=== PATIENT | female | born 1945 | race Caucasian/White ===

== ENCOUNTER 2016-05-19 11:09 | Emergency (ER) | payer MEDICARE, OTHER ==
[2016-05-19 11:15] VITALS: BP 128/68
--- NOTE | 2016-05-19 11:56 | EDM.PDOC ---
ED HPI GENERAL MEDICAL PROBLEM - General Chief Complaint: Fever Stated Complaint: FEVER FROM CHEMO Time Seen by Provider: 05/19/16 11:45 Source of Information: Reports: Patient History Limitations: Reports: No limitations - History of Present Illness INITIAL COMMENTS - FREE TEXT/NARRATIVE: This 70 yo female patient reports to the ED due to a fever. The patient reports she was going to get chemo when the nursing staff noticed that the patient had a fever. The patient was sent to the ED for further evaluation and management. 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 The patient is currently on day 9 of a 10 day course of chemo. The patient reports no current cough, cold or flu symptoms. The patient reports frequent urination, but also reports she drinks a lot of water every day and normally produces a lot of urine. The patient reports she has been having increased gas over the past couple of days, but has not had any nausea, vomiting or diarrhea. Onset: today Duration: Constant Location: Reports: other (unknown fever) Severity: mild Improves with: Reports: None Worsens with: Reports: None Associated Symptoms: Reports: fever/chills - Related Data Allergies Allergy/AdvReac Type Severity Reaction Status Date / Time diclofenac sodium Allergy Unknown Cannot Verified 05/19/16 11:31 [From Arthrotec] Remember misoprostol [From Arthrotec] Allergy Unknown Cannot Verified 05/19/16 11:31 Remember sulfamethoxazole Allergy Unknown Rash Verified 05/19/16 11:31 [From Bactrim] trimethoprim [From Bactrim] Allergy Unknown Rash Verified 05/19/16 11:31 valdecoxib [From Bextra] Allergy Unknown Cannot Verified 05/19/16 11:31 Remember lansoprazole Allergy Nausea and Verified 05/19/16 11:31 Vomiting midodrine Allergy Bradycardia Verified 05/19/16 11:31 pantoprazole Allergy Nausea and Verified 05/19/16 11:31 Vomiting pravastatin Allergy Weakness Verified 05/19/16 11:31 Sulfa (Sulfonamide Allergy Rash Verified 05/19/16 11:31 Antibiotics) sulfacetamide Allergy Rash Verified 05/19/16 11:31 atorvastatin calcium AdvReac Unknown Muscle Verified 05/19/16 11:31 [From Lipitor] Aches crab AdvReac Diarrhea Verified 05/19/16 11:31 rosuvastatin AdvReac Muscle Verified 05/19/16 11:31 Aches Home Meds: Home Meds Calcium Carbonate/Vitamin D3 [Calcium 600 + Vit D Tablet] 1,200 mg PO DAILY 10/18 [History] Levothyroxine [Synthroid] 88 mcg PO DAILY 11/12/13 [History] Multivitamin [Multi Vitamin Daily] 1 tab PO DAILY 11/12/13 [History] Nitroglycerin [Nitrostat] 0.4 mg SL ASDIRECTED PRN 11/12/13 [History] Omeprazole [Prilosec] 20 mg PO DAILY 11/12/13 [History] traMADol [Ultram] 50 mg PO Q6HR PRN 11/12/13 [History] Fludrocortisone [Florinef] 0.05 mg PO DAILY 11/13/13 [History] Hydrocortisone [Cortef] 20 mg PO DAILY 11/13/13 [History] Hydrocortisone [Cortef] 10 mg PO BEDTIME 02/22/15 [History] Potassium Chloride 10 meq PO TID 02/22/15 [History] Acetaminophen 2 tab PO Q6H PRN 12/24/15 [History] Allopurinol [Zyloprim] 300 mg PO DAILY 12/24/15 [History] Hydroxyurea [Hydrea] 2 cap PO DAILY 12/24/15 [History] Ondansetron [Zofran] 4 mg PO Q8H PRN 12/24/15 [History] Ponatinib HCl [Iclusig] 15 mg PO DAILY 12/24/15 [History] Aspirin [Halfprin] 81 mg PO BRK 03/26/16 [History] Fluconazole [Diflucan] 200 mg PO DAILY 03/26/16 [History] Pentamidine Isethionate [Nebupent] 300 mg INH ASDIRECTED 03/26/16 [History] Metoprolol Succinate [Toprol XL] 1 tab PO DAILY 05/19/16 [History] Valsartan 1 tab PO DAILY 05/19/16 [History] Past Medical History HEENT History: Reports: Cataract Cardiovascular History: Reports: CAD, High cholesterol, Hypertension, Stents Respiratory History: Reports: Bronchitis, recurrent, Pneumonia, recurrent Gastrointestinal History: Reports: None Genitourinary History: Reports: UTI, recurrent [employer] History: Reports: Musculoskeletal History: Reports: Osteoarthritis Neurological History: Reports: None Psychiatric History: Reports: None Endocrine/Metabolic History: Reports: [place]'s disease, Hypothyroidism, Other ( see below) Other Endocrine/Metabolic History: checks blood sugar, no medication Hematologic History: Reports: Other (see below) Other Hematologic History: chemo induced thrombocytopenia Immunologic History: Reports: Immunosuppression Oncologic (Cancer) History: Reports: Leukemia, Other (see below) Other Oncologic History: Acute Myelo leukemia Dermatologic History: Reports: None - Infectious Disease History Infectious Disease History: Reports: Measles - Past Surgical History HEENT Surgical History: Reports: None Cardiovascular Surgical History: Reports: Carotid stents Musculoskeletal Surgical History: Reports: Knee replacement Social & Family History - Family History Family Medical History: Noncontributory HEENT: Reports: Cataract Cardiac: Reports: Heart failure, [place] Respiratory: Reports: Asthma GI: Reports: Other (see below) Other GI Family History: Chrones disease Musculoskeletal: Reports: Arthritis Neurological: Reports: CVA Endocrine/Metabolic: Reports: Ran's disease Oncologic: Reports: Colon, Lung - Tobacco Use Smoking Status *Q: Unknown Ever Smoked Second Hand Smoke Exposure: No - Caffeine Use Caffeine Use: Reports: Coffee - Recreational Drug Use Recreational Drug Use: No ED ROS GENERAL - Review of Systems Review Of Systems: See Below Constitutional: Reports: fever HEENT: Reports: No symptoms Respiratory: Reports: No Symptoms Cardiovascular: Reports: No symptoms Endocrine: Reports: no symptoms GI/Abdominal: Reports: Flatus. Denies: Abdominal pain, Black stool, Bloody stool, Constipation, Diarrhea, Decreased appetite, Difficulty swallowing, Distension, Hematemesis, Hematochezia, Melena, Mucous in stool, Nausea, Stool incontinence, Vomiting : Reports: frequency (may be due to increased water intake) Musculoskeletal: Reports: no symptoms Skin: Reports: no symptoms Neurological: Reports: No Symptoms Psychiatric: Reports: No symptoms Hematologic/Lymphatic: Reports: no symptoms Immunologic: Reports: no symptoms ED EXAM, GENERAL - Physical Exam Exam: See Below Exam Limited By: No limitations General Appearance: alert, WD/WN, no apparent distress Eye Exam: bilateral eye: EOMI, normal inspection, PERRL Ears: normal external exam, normal canal, hearing grossly normal, normal TMs Nose: normal inspection, normal mucosa, no blood Throat/Mouth: Normal inspection, Normal lips, Normal teeth, Normal gums, Normal oropharynx, Normal voice, No airway compromise Head: atraumatic, normocephalic Neck: normal inspection, supple, non-tender, full range of motion Respiratory/Chest: no respiratory distress, lungs clear, normal breath sounds, no accessory muscle use, chest non-tender Cardiovascular: normal peripheral pulses, regular rate, rhythm, no edema, no gallop, no JVD, no murmur, no rub GI/Abdominal: normal bowel sounds (Female) Exam: Deferred Rectal (Female) Exam: Deferred Back Exam: normal inspection Extremities: normal inspection, normal range of motion, non-tender, normal capillary refill, no pedal edema Neurological: alert, oriented, CN II-XII intact, normal cognition, normal gait, normal reflexes, no motor/sensory deficits Psychiatric: normal affect Skin Exam: Warm, Dry, Intact, Normal color, No rash Lymphatic: no adenopathy Course - Vital Signs Last Recorded V/S: Last Vital Signs Temp 38.4 C H 05/19/16 11:14 Pulse 119 H 05/19/16 11:14 Resp 20 05/19/16 11:14 BP 128/68 05/19/16 11:14 Pulse Ox 99 05/19/16 11:14 - Orders/Labs/Meds Orders: Active Orders 24 hr Category Date Time Status CULTURE BLOOD [BC] Stat Lab 05/19/16 11:58 Received CULTURE BLOOD [BC] Stat Lab 05/19/16 12:02 Received LACTIC ACID [CHEM] Stat Lab 05/19/16 12:02 Received Acetaminophen [Tylenol] Med 05/19/16 12:18 Once 650 mg PO NOW ONE Blood Culture x2 Reflex Set [OM.PC] Stat Oth 05/19/16 11:50 Ordered Labs: Laboratory Tests 05/19/16 05/19/16 05/19/16 Range/Units 11:25 11:28 11:28 WBC 14.4 H (5.0-10.0) 10^3/uL RBC 3.43 L (4.2-5.4) 10^6/uL Hgb 10.3 L (12.0-16.0) g/dL Hct 32.9 L (37.0-47.0) % MCV 95.9 (80-100) fL MCH 30.0 (27.0-34.0) pg MCHC 31.3 L (33.0-35.0) g/dL Plt Count 299 (150-450) 10^3/uL Neut % (Auto) 87.1 H (42.2-75.2) % Lymph % (Auto) 8.7 L (20.5-50.1) % Dukes % (Auto) 3.4 (2-8) % Eos % (Auto) 0.1 L (1.0-3.0) % Baso % (Auto) 0.7 (0.0-1.0) % Sodium 133 L (135-145) mmol/L Potassium 3.5 L (3.6-5.0) mmol/L Chloride 99 L (101-111) mmol/L Carbon Dioxide 25.0 (21.0-31.0) mmol/L Anion Gap 12.5 BUN 16 (7-18) mg/dL Creatinine 1.0 (0.6-1.3) mg/dL Est Cr Clr Drug Dosing 38.68 mL/min Estimated GFR (MDRD) 55 BUN/Creatinine Ratio 16.00 Glucose 127 H (74-105) mg/dL Calcium 8.7 (8.4-10.2) mg/dl Total Bilirubin 1.0 (0.2-1.0) mg/dL AST 20 (10-42) IU/L ALT 18 (10-60) IU/L Alkaline Phosphatase 52 (42-121) IU/L Total Protein 7.2 (6.7-8.2) g/dl Albumin 3.0 L (3.2-5.5) g/dl Globulin 4.2 Albumin/Globulin Ratio 0.71 Urine Color Yellow (YELLOW) Urine Appearance Clear (CLEAR) Urine pH 7.0 (5.0-9.0) Ur Specific Dexter 1.015 (1.005-1.030) Urine Protein Negative (NEGATIVE) Urine Glucose (UA) Negative (NEGATIVE) Urine Ketones Negative (NEGATIVE) Urine Occult Blood Trace-intact H (NEGATIVE) Urine Nitrite Negative (NEGATIVE) Urine Bilirubin Negative (NEGATIVE) Urine Urobilinogen 1.0 (0.2-1.0) mg/dL Ur Leukocyte Esterase Trace H (NEGATIVE) Urine RBC 0-5 /HPF Urine WBC 0-5 (0-5/HPF) /HPF Ur Epithelial Cells Occasional /HPF Urine Bacteria Occasional (0-FEW/HPF) /HPF - Re-Assessments/Exams Free Text/Narrative Re-Assessment/Exam: 05/19/16 12:19 Discussed the examination, history and lab results with Dr. Luther. Dr. Luther advised to give the patient Tylenol and have her complete her treatment. Departure - Departure Time of Disposition: 12:20 Disposition: Home, Self-Care 01 Condition: fair Clinical Impression: Fever Qualifiers: Fever type: other Qualified Code(s): R50.81 - Fever presenting with conditions classified elsewhere Instructions: Fever, Adult, [id number] Forms: ED Department Discharge Care Plan Goals: The patient and Dr. Luther were advised of the history, examination and lab results during the visit in the ED. The patient was given a dose of Tylenol while in the ED. The patient was advised to return to finish her treatment ( after consult with Dr. Luther at 1215). If the patient has any additional symptoms or concerns, the patient may follow-up with her primary care facility or return to the emergency department. - My Orders Last 24 Hours: My Active Orders 05/19/16 11:50 Blood Culture x2 Reflex Set [OM.PC] Stat 05/19/16 11:58 CULTURE BLOOD [BC] Stat 05/19/16 12:02 CULTURE BLOOD [BC] Stat LACTIC ACID [CHEM] Stat 05/19/16 12:18 Acetaminophen [Tylenol] 650 mg PO NOW ONE - Assessment/Plan Last 24 Hours: My Active Orders 05/19/16 11:50 Blood Culture x2 Reflex Set [OM.PC] Stat 05/19/16 11:58 CULTURE BLOOD [BC] Stat 05/19/16 12:02 CULTURE BLOOD [BC] Stat LACTIC ACID [CHEM] Stat 05/19/16 12:18 Acetaminophen [Tylenol] 650 mg PO NOW ONE
[2016-05-19] MEDS ORDERED: Acetaminophen 325 MG Tab PO ONE (12:18)
== END 2016-05-19 12:30 | disposition home or self-care (01) ==
LOC: DL.ED 11:09
DX: R50.81 Fever presenting with conditions classified elsewhere (principal); I25.10 Atherosclerotic heart disease of native coronary artery without angina pectoris; I10 Essential (primary) hypertension; E78.00 Pure hypercholesterolemia, unspecified; E03.9 Hypothyroidism, unspecified; Z88.8 Allergy status to other drugs, medicaments and biological substances; Z88.2 Allergy status to sulfonamides; Z79.899 Other long term (current) drug therapy
CPT/HCPCS: 36415; 80053; 81001; 83605; 85025; 87040; 99284; A9270; 99282

== ENCOUNTER 2018-06-22 06:28 | Day surgery (SDC) | payer MEDICARE, OTHER ==
[~2018-06-22 06:28] MED LIST: Dextrose 5%-0.45% NaCl 1,000 ML IV SCH; Midazolam 1 MG/ML 2 ML SDV ONE; Sodium Chloride 0.9% 10 ML Syringe FLUSH PRN; fentaNYL 100 MCG/2 ML SDV ONE
[2018-06-22] MEDS ORDERED: fentaNYL 100 MCG/2 ML SDV IV ONE ×3 (06:29→07:35)
[2018-06-22] MEDS ORDERED: Midazolam 1 MG/ML 2 ML SDV IV ONE ×5 (06:29→07:40)
--- NOTE | 2018-06-22 11:24 | OR ---
DATE: 06/22/2018 PROCEDURE: Total colonoscopy. INSTRUMENT USED: PCF-H190DL Olympus video colonoscope. PREMEDICATIONS: Fentanyl 100 mcg intravenous, Versed 2.5 mg intravenous, nasal O2 cannula. The procedure was done under pulse oximetry, BP recording, and environmental monitoring specialist. INDICATION: The patient with rectal bleeding. Colonoscopic examination is done for detection of any polypoid lesions and removal, endoscopic hemostasis therapy if needed. DESCRIPTION OF PROCEDURE: Initial rectal exam showed an erythema and some abrasions. Rigid anoscopy showed small internal hemorrhoids without bleeding from them. The colonoscope was passed with ease. Few diverticula were noted in the distal left colon. Scope was passed with ease up to the ileocecal area. Photographs were taken of the normal appearing cecum, identified by landmarks of appendiceal orifice and double-bulged ileocecal folds. No bleeding was noted from any of the visualized areas at the commencement of the examination. Bowel preparation was found to be adequate, [place] scale of 2. No stricture. No vascular ectasia. No large isolated ulceration seen. No evidence of diffuse inflammatory bowel disease in the form of friability, contact bleeding, or ulcerations. No polyp or tumor mass identified. Probing the proximal sides of folds and flexures using adequate distention and clearing up the stool material, withdrawal of the scope was made, cecum to rectum time over 6 minutes. No bleeding was noted from any of the visualized areas at the completion of examination. IMPRESSION: 1. Perianal abrasions. 2. Internal hemorrhoids. 3. Diverticulosis. The patient tolerated the procedure well. [facility] /[id number] ANGE
[2018-06-22 11:51] VITALS: BP 118/70
--- NOTE | 2018-06-22 12:12 | LETTER ---
06/22/2018 Tomas Luther MD [facility] [address] [place] [address], [place] [address] RE: MIRYAM LOPEZ : [address] Luther: Ms. Miryam Lopez had colonoscopic examination done this morning and she tolerated the procedure well. I herewith send a copy of the endoscopy note and photographs for your review. Thank you. Sincerely, [facility] /[id number]
== END 2018-06-22 09:53 | disposition home or self-care (01) ==
LOC: DL.ENDO 06:28
PROVIDERS: ATTEND Internal Medicine Gastroenterology
DX: S30.817A Abrasion of anus, initial encounter (principal); K57.30 Diverticulosis of large intestine without perforation or abscess without bleeding; K64.8 Other hemorrhoids; E66.09 Other obesity due to excess calories; I25.10 Atherosclerotic heart disease of native coronary artery without angina pectoris; Z95.5 Presence of coronary angioplasty implant and graft; E11.9 Type 2 diabetes mellitus without complications; K21.9 Gastro-esophageal reflux disease without esophagitis; I10 Essential (primary) hypertension; E03.9 Hypothyroidism, unspecified; E78.5 Hyperlipidemia, unspecified; G47.33 Obstructive sleep apnea (adult) (pediatric)
CPT/HCPCS: 45378; J1642; J2250; J3010; J7042

== ENCOUNTER 2018-08-19 08:36 | Emergency (ER) | payer MEDICARE, OTHER ==
[2018-08-19 08:43] VITALS: BP 140/88
[2018-08-19] MEDS ORDERED: Aspirin 81 MG Tab.Chew PO ONE (08:50)
[2018-08-19] MEDS ORDERED: Sodium Chloride 0.9% 10 ML Syringe FLUSH PRN (08:50)
[2018-08-19 09:15] LABS: ANION GAP 11.8; CHLORIDE,CL 105 mmol/L (101-111); SODIUM,NA 141 mmol/L (135-145)
[2018-08-19] MEDS ORDERED: Potassium Chloride 20 MEQ in Premix Bag 1 BAG IV ONE (09:30)
[2018-08-19] MEDS ORDERED: Sodium Chloride 0.9% 1,000 ML IV ONE (09:31)
[2018-08-19] MEDS ORDERED: Heparin Sodium 5,000 Units/ML Vial IVPUSH ONE (09:34)
[2018-08-19] MEDS ORDERED: Heparin Sodium/0.45% NaCl 25,000 UNITS/500 ML BAG IV SCH (09:45)
--- NOTE | 2018-08-19 09:47 | EDM.PDOC ---
Scribed by Chastity العراقي 08/19/18 0931 for Kyra Soto NP ED HPI GENERAL MEDICAL PROBLEM - General Chief Complaint: Chest Pain Stated Complaint: CHEST PAIN Time Seen by Provider: 08/19/18 08:39 Source of Information: Reports: Patient, RN, RN Notes Reviewed History Limitations: Reports: No Limitations - History of Present Illness INITIAL COMMENTS - FREE TEXT/NARRATIVE: Patient presents to ER with complaint of mid sternal chest pain that began at 0700 this morning. She denies radiation to jaw, arm, or back. She admits to nausea. States last ate last evening. 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 She also admits to a history of cardiac stents in the past. She rates her pain 5/10. Onset: Today Duration: Constant Location: Reports: Chest Quality: Reports: Ache Severity: Moderate Worsens with: Reports: None Associated Symptoms: Reports: No Other Symptoms Chest Pain Score (Numeric/FACES): 5 - Related Data Allergies Allergy/AdvReac Type Severity Reaction Status Date / Time diclofenac sodium Allergy Unknown Cannot Verified 08/19/18 08:46 [From Arthrotec] Remember misoprostol [From Arthrotec] Allergy Unknown Cannot Verified 08/19/18 08:46 Remember sulfamethoxazole Allergy Unknown Rash Verified 08/19/18 08:46 [From Bactrim] trimethoprim [From Bactrim] Allergy Unknown Rash Verified 08/19/18 08:46 valdecoxib [From Bextra] Allergy Unknown Cannot Verified 08/19/18 08:46 Remember lansoprazole Allergy Nausea and Verified 08/19/18 08:46 Vomiting levofloxacin [From Levaquin] Allergy Facial Verified 08/19/18 08:46 Spasms midodrine Allergy Bradycardia Verified 08/19/18 08:46 pantoprazole Allergy Nausea and Verified 08/19/18 08:46 Vomiting pravastatin Allergy Weakness Verified 08/19/18 08:46 Sulfa (Sulfonamide Allergy Rash Verified 08/19/18 08:46 Antibiotics) sulfacetamide Allergy Rash Verified 08/19/18 08:46 atorvastatin calcium AdvReac Unknown Muscle Verified 08/19/18 08:46 [From Lipitor] Aches crab AdvReac Diarrhea Verified 08/19/18 08:46 rosuvastatin AdvReac Muscle Verified 08/19/18 08:46 Aches Home Meds: Home Meds Calcium Carbonate/Vitamin D3 [Calcium 600 + Vit D Tablet] 1,200 mg PO DAILY 10/18 [History] Levothyroxine [Synthroid] 88 mcg PO DAILY 11/12/13 [History] Multivitamin [Multi Vitamin Daily] 1 tab PO DAILY 11/12/13 [History] Nitroglycerin [Nitrostat] 0.4 mg SL ASDIRECTED PRN 11/12/13 [History] Fludrocortisone [Florinef] 0.05 mg PO DAILY 11/13/13 [History] Hydrocortisone [Cortef] 20 mg PO BID 11/13/13 [History] Potassium Chloride 20 meq PO QID 02/22/15 [History] Acetaminophen 2 tab PO Q6H PRN 12/24/15 [History] Ondansetron [Zofran] 8 mg PO Q8H PRN 12/24/15 [History] Aspirin [Halfprin] 81 mg PO BEDTIME 03/26/16 [History] Turmeric/Turmeric Root Extract [Turmeric 500 mg Capsule] 1 cap PO BID 12/06/16 [ History] L.acidoph,Paracasei, B.lactis [Probiotic] 1 tab PO DAILY 06/21/18 [History] Lutein 10 mg PO DAILY 06/21/18 [History] Magnesium Oxide [Magnesium] 400 mg PO DAILY 06/21/18 [History] Mupirocin Oint [Bactroban Oint] 1 squirt TOP BID 06/21/18 [History] Past Medical History HEENT History: Reports: Cataract, Impaired Vision Other HEENT History: PATIENT WEARS CORRECTIVE LENSES Cardiovascular History: Reports: CAD, High Cholesterol, Hypertension, SOB on Exertion, Stents Respiratory History: Reports: Bronchitis, Recurrent, Pneumonia, Recurrent, Sleep Apnea Gastrointestinal History: Reports: Diverticulosis, GERD Genitourinary History: Reports: Renal Disease, UTI, Recurrent, Other (See Below) Other Genitourinary History: MICROSCOPIC [employer] History: Reports: , Spontaneous Musculoskeletal History: Reports: Arthritis, Osteoarthritis Neurological History: Reports: Headaches, Chronic Psychiatric History: Reports: None Endocrine/Metabolic History: Reports: Erie's Disease, Diabetes, Type II, Hypothyroidism, Osteopenia Other Endocrine/Metabolic History: checks blood sugar, no medication Hematologic History: Reports: Anemia, Blood Transfusion(s) Other Hematologic History: chemo induced thrombocytopenia Immunologic History: Reports: Immunosuppression Oncologic (Cancer) History: Reports: Leukemia Other Oncologic History: Acute Myelo leukemia Dermatologic History: Reports: None - Infectious Disease History Infectious Disease History: Reports: Measles, Mumps - Past Surgical History HEENT Surgical History: Reports: None Cardiovascular Surgical History: Reports: Coronary Artery Stent Respiratory Surgical History: Reports: None GI Surgical History: Reports: Colonoscopy, Colostomy, EGD Female Surgical History: Reports: Breast Biopsy, Cystoscopy, Tubal Ligation, Other (See Below) Other Female Surgeries/Procedures: LEFT BENIGN BREAsT LUMPECTOMY Neurological Surgical History: Reports: None Musculoskeletal Surgical History: Reports: Knee Replacement Other Musculoskeletal Surgeries/Procedures:: bilateral knee replacement 2005 Oncologic Surgical History: Reports: Biopsy of Breast, Lumpectomy Dermatological Surgical History: Reports: None Social & Family History - Family History Family Medical History: Noncontributory HEENT: Reports: Cataract Cardiac: Reports: Heart Failure, [place] Respiratory: Reports: Asthma GI: Reports: Other (See Below) Other GI Family History: Chrones disease Musculoskeletal: Reports: Arthritis Neurological: Reports: CVA Endocrine/Metabolic: Reports: Erie's Disease Oncologic: Reports: Colon, Lung - Caffeine Use Caffeine Use: Reports: Soda, Tea ED ROS GENERAL - Review of Systems Review Of Systems: ROS reveals no pertinent complaints other than HPI. ED EXAM, GENERAL - Physical Exam Exam: See Below Exam Limited By: No Limitations General Appearance: Anxious Eye Exam: Bilateral Eye: EOMI, Normal Inspection, PERRL Ears: Normal External Exam, Normal Canal, Hearing Grossly Normal, Normal TMs Nose: Normal Inspection, Normal Mucosa, No Blood Throat/Mouth: Normal Inspection, Normal Lips, Normal Teeth, Normal Gums, Normal Oropharynx, Normal Voice, No Airway Compromise Head: Atraumatic, Normocephalic Neck: Normal Inspection, Supple, Non-Tender, Full Range of Motion Respiratory/Chest: Lungs Clear (diminished) Cardiovascular: Normal Peripheral Pulses, Regular Rate, Rhythm, No Edema, No Gallop, No JVD, No Murmur, No Rub GI/Abdominal: Normal Bowel Sounds, Soft, Non-Tender, No Organomegaly, No Distention, No Abnormal Bruit, No Mass (Female) Exam: Deferred Rectal (Female) Exam: Deferred Back Exam: Normal Inspection, Full Range of Motion, NT Extremities: Normal Inspection, Normal Range of Motion, Non-Tender, Normal Capillary Refill, No Pedal Edema Neurological: Alert, Oriented, CN II-XII Intact, Normal Cognition, Normal Gait, Normal Reflexes, No Motor/Sensory Deficits Psychiatric: Anxious Skin Exam: Other (pale) Lymphatic: No Adenopathy EKG INTERPRETATION EKG Date: 08/19/18 Time: 08:50 Rhythm: Other (sinus rhythm) Rate (Beats/Min): 70 [place]: Normal P-Wave: Present QRS: LBBB ST-T: Normal QT: Normal Course - Vital Signs Last Recorded V/S: Last Vital Signs Temp 95.7 F 08/19/18 08:40 Pulse 79 08/19/18 08:40 Resp 18 08/19/18 08:40 BP 140/88 08/19/18 08:40 Pulse Ox 96 08/19/18 08:40 - Orders/Labs/Meds Orders: Active Orders 24 hr Category Date Time Status EKG Documentation Completion [RC] STAT Care 08/19/18 08:49 Active Peripheral IV Care [RC] . DIRECTED Care 08/19/18 08:50 Active INR,PT,PROTHROMBIN TIME [COAG] Stat Lab 08/19/18 08:50 Received Heparin Sodium/0.45% NaCl [Heparin 25,000 Units in 1/2 Med 08/19/18 09:45 Active NS 500 ML] 25,000 units in 500 ml IV TITRATE Potassium Chloride [KCL 20 MEQ in Water 100 ML] 20 meq Med 08/19/18 09:30 Active Premix Bag 1 bag IV ONETIME Sodium Chloride 0.9% [Normal Saline] 1,000 ml Med 08/19/18 09:31 Active IV .BOLUS Sodium Chloride 0.9% [Saline Flush] Med 08/19/18 08:50 Active 10 ml FLUSH ASDIRECTED PRN Peripheral IV Insertion Adult [OM.PC] Stat Oth 08/19/18 08:49 Ordered Medication Orders Potassium Chloride 20 meq/ (Premix) 100 mls @ 50 mls/hr IV ONETIME ONE Stop: 08/19/18 11:29 Last Admin: 08/19/18 09:38 Dose: 50 mls/hr Sodium Chloride (Normal Saline) 1,000 mls @ 100 mls/hr IV .BOLUS ONE Stop: 08/19/18 19:30 Last Admin: 08/19/18 09:37 Dose: 100 mls/hr Heparin Sodium/Sodium Chloride (Heparin 25,000 Units In 1/2 Ns 500 Ml) 25,000 units in 500 mls @ 23.253 mls/hr IV TITRATE TESSA; Protocol Sodium Chloride (Saline Flush) 10 ml FLUSH ASDIRECTED PRN PRN Reason: Keep Vein Open Last Admin: 08/19/18 09:11 Dose: 10 ml Labs: Laboratory Tests 08/19/18 08/19/18 08/19/18 Range/Units 08:50 08:50 09:03 WBC 8.9 (5.0-10.0) 10^3/uL RBC 4.05 L (4.2-5.4) 10^6/uL Hgb 12.6 D (12.0-16.0) g/dL Hct 39.4 (37.0-47.0) % MCV 97.3 (80-100) fL MCH 31.1 (27.0-34.0) pg MCHC 32.0 L (33.0-35.0) g/dL Plt Count 197 D (150-450) 10^3/uL Neut % (Auto) 62.2 (42.2-75.2) % Lymph % (Auto) 24.7 (20.5-50.1) % [place] % (Auto) 10.5 H (2-8) % Eos % (Auto) 2.3 (1.0-3.0) % Baso % (Auto) 0.3 (0.0-1.0) % Sodium 141 (135-145) mmol/L Potassium 2.8 L (3.6-5.0) mmol/L Chloride 105 (101-111) mmol/L Carbon Dioxide 27.0 (21.0-31.0) mmol/L Anion Gap 11.8 BUN 15 (7-18) mg/dL Creatinine 0.8 (0.6-1.3) mg/dL Est Cr Clr Drug Dosing 49.38 mL/min Estimated GFR (MDRD) > 60 BUN/Creatinine Ratio 18.75 Glucose 95 (74-105) mg/dL Calcium 8.7 (8.4-10.2) mg/dl Total Bilirubin 1.0 (0.2-1.0) mg/dL AST 24 (10-42) IU/L ALT 14 (10-60) IU/L Alkaline Phosphatase 40 L (42-121) IU/L Troponin I 2.07 H* (0.00-0.02) ng/ml B-Natriuretic Peptide 527 H (0-100) pg/ml Total Protein 5.8 L (6.7-8.2) g/dl Albumin 3.1 L (3.2-5.5) g/dl Globulin 2.7 Albumin/Globulin Ratio 1.15 Urine Color Yellow (YELLOW) Urine Appearance Clear (CLEAR) Urine pH 7.0 (5.0-9.0) Ur Specific [place] 1.020 (1.005-1.030) Urine Protein Negative (NEGATIVE) Urine Glucose (UA) Negative (NEGATIVE) Urine Ketones Negative (NEGATIVE) Urine Occult Blood Negative (NEGATIVE) Urine Nitrite Negative (NEGATIVE) Urine Bilirubin Negative (NEGATIVE) Urine Urobilinogen 0.2 (0.2-1.0) mg/dL Ur Leukocyte Esterase Negative (NEGATIVE) Meds: Medications Generic Name Dose Route Start Last Admin Trade Name Benjamín PRN Reason Stop Dose Admin Potassium Chloride 20 meq/ 100 mls @ 50 mls/hr 08/19/18 09:30 08/19/18 09:38 Premix IV 08/19/18 11:29 50 mls/hr ONETIME ONE Administration Sodium Chloride 1,000 mls @ 100 mls/hr 08/19/18 09:31 08/19/18 09:37 Normal Saline IV 08/19/18 19:30 100 mls/hr .BOLUS ONE Administration Heparin Sodium/Sodium Chloride 25,000 units in 500 mls @ 23.253 mls/hr 09:45 Heparin 25,000 Units In 1/2 Ns 500 Ml IV TITRATE TESSA Protocol 12 UNITS/KG/HR Sodium Chloride 10 ml 08/19/18 08:50 08/19/18 09:11 Saline Flush FLUSH 10 ml ASDIRECTED PRN Administration Keep Vein Open Discontinued Medications Generic Name Dose Route Start Last Admin Trade Name Freq PRN Reason Stop Dose Admin Aspirin 324 mg 08/19/18 08:50 08/19/18 09:10 Aspirin PO 08/19/18 08:51 324 mg ONETIME ONE Administration Heparin Sodium (Porcine) 4,000 units 08/19/18 09:34 Heparin Sodium IVPUSH 08/19/18 09:35 .BOLUS ONE - Radiology Interpretation Free Text/Narrative:: Chest xray: FINDINGS: Limitations: Body habitus degrades image quality and signal to noise ratio compromising the study. Tubes, catheters and devices: An infusion port is present. Lungs: Unremarkable. No consolidation. Pleural space: Unremarkable. No pleural effusion. No pneumothorax. Heart/Mediastinum: Unremarkable. No cardiomegaly. Bones/joints: Unremarkable. IMPRESSION: No acute findings. Thank you for allowing us to participate in the care of your patient. Dictated and Authenticated by: Soham Shi MD 08/19/2018 9:21 AM Central Time ([place] & [place]) See rad report - Re-Assessments/Exams Free Text/Narrative Re-Assessment/Exam: 08/19/18 09:44 Discussed patient case with Dr. Michelle who agreed to accept the patient for transfer to [facility]. Departure - Departure Time of Disposition: 09:45 Disposition: DC/Tfer to [facility] 02 Reason for Transfer *Q: Other Condition: Fair Clinical Impression: Hypokalemia, Ran's disease, NSTEMI (non-ST elevated myocardial infarction) Forms: ED Department Discharge, Interfacility Transfer EMTALA - My Orders Last 24 Hours: My Active Orders 08/19/18 08:49 EKG Documentation Completion [RC] STAT Peripheral IV Insertion Adult [OM.PC] Stat 08/19/18 08:50 Peripheral IV Care [RC] . DIRECTED INR,PT,PROTHROMBIN TIME [COAG] Stat Sodium Chloride 0.9% [Saline Flush] 10 ml FLUSH ASDIRECTED PRN 08/19/18 09:30 Potassium Chloride [KCL 20 MEQ in Water 100 ML] 20 meq Premix Bag 1 bag IV ONETIME 08/19/18 09:31 Sodium Chloride 0.9% [Normal Saline] 1,000 ml IV .BOLUS 08/19/18 09:45 Heparin Sodium/0.45% NaCl [Heparin 25,000 Units in 1/2 NS 500 ML] 25,000 units in 500 ml IV TITRATE - Assessment/Plan Last 24 Hours: My Active Orders 08/19/18 08:49 EKG Documentation Completion [RC] STAT Peripheral IV Insertion Adult [OM.PC] Stat 08/19/18 08:50 Peripheral IV Care [RC] . DIRECTED INR,PT,PROTHROMBIN TIME [COAG] Stat Sodium Chloride 0.9% [Saline Flush] 10 ml FLUSH ASDIRECTED PRN 08/19/18 09:30 Potassium Chloride [KCL 20 MEQ in Water 100 ML] 20 meq Premix Bag 1 bag IV ONETIME 08/19/18 09:31 Sodium Chloride 0.9% [Normal Saline] 1,000 ml IV .BOLUS 08/19/18 09:45 Heparin Sodium/0.45% NaCl [Heparin 25,000 Units in 1/2 NS 500 ML] 25,000 units in 500 ml IV TITRATE I have read and agree with the documentation that has been completed regarding this visit. By signing this record, I attest that the documentation was completed in my physical presence and is an accurate record of the encounter.
== END 2018-08-19 10:13 ==
LOC: DL.ED 08:36
DX: I21.4 Non-ST elevation (NSTEMI) myocardial infarction (principal); E27.1 Primary adrenocortical insufficiency; E87.6 Hypokalemia; E11.9 Type 2 diabetes mellitus without complications; E03.9 Hypothyroidism, unspecified; I25.10 Atherosclerotic heart disease of native coronary artery without angina pectoris; E78.00 Pure hypercholesterolemia, unspecified; I10 Essential (primary) hypertension; Z95.5 Presence of coronary angioplasty implant and graft; Z88.8 Allergy status to other drugs, medicaments and biological substances; Z88.2 Allergy status to sulfonamides; Z88.1 Allergy status to other antibiotic agents; Z79.899 Other long term (current) drug therapy; Z79.82 Long term (current) use of aspirin; Z91.013 Allergy to seafood
CPT/HCPCS: 36415; 71045; 80053; 81003; 83880; 84484; 85025; 85610; 93005; 96365; 96368; 99285; A4217; A9270; J1644; J3480; J7030

== ENCOUNTER 2019-01-03 10:39 | Emergency (ER) | payer MEDICARE, OTHER ==
--- NOTE | 2019-01-03 11:17 | EDM.PDOC ---
ED HPI GENERAL MEDICAL PROBLEM - General Stated Complaint: CHEST PAIN Time Seen by Provider: 01/03/19 11:05 Source of Information: Reports: Patient History Limitations: Reports: No Limitations - History of Present Illness INITIAL COMMENTS - FREE TEXT/NARRATIVE: This 73 yo female patient reports to the ED with left sided chest pain and increased shortness of breath. The patient reports her pain is mostly in the left side of her chest and radiates to her left posterior shoulder. The patient reports she had a pacemaker placed on Tuesday (01/01/19) in [place]. After the procedure, the patient reports she noticed some shortness of breath. Since that time, the patient has noticed some chills and increasing shortness of breath. The patient reports she has had a productive cough and had some nausea during the last episode of coughing. Onset Date: 01/01/19 Duration: Constant, Getting Worse Location: Reports: Chest (left sided chest pain), Upper Extremity, Left (left posterior shoulder) Quality: Reports: Ache, Pressure Severity: Moderate Improves with: Reports: None Worsens with: Reports: None Context: Reports: Other Associated Symptoms: Reports: Chest Pain, cough w sputum, Nausea/Vomiting Treatments GREENS TIER: Reports: Acetaminophen - Related Data Allergies Allergy/AdvReac Type Severity Reaction Status Date / Time diclofenac sodium Allergy Unknown Cannot Verified 08/19/18 08:46 [From Arthrotec] Remember misoprostol [From Arthrotec] Allergy Unknown Cannot Verified 08/19/18 08:46 Remember sulfamethoxazole Allergy Unknown Rash Verified 08/19/18 08:46 [From Bactrim] trimethoprim [From Bactrim] Allergy Unknown Rash Verified 08/19/18 08:46 valdecoxib [From Bextra] Allergy Unknown Cannot Verified 08/19/18 08:46 Remember lansoprazole Allergy Nausea and Verified 08/19/18 08:46 Vomiting levofloxacin [From Levaquin] Allergy Facial Verified 08/19/18 08:46 Spasms midodrine Allergy Bradycardia Verified 08/19/18 08:46 pantoprazole Allergy Nausea and Verified 08/19/18 08:46 Vomiting pravastatin Allergy Weakness Verified 08/19/18 08:46 Sulfa (Sulfonamide Allergy Rash Verified 08/19/18 08:46 Antibiotics) sulfacetamide Allergy Rash Verified 08/19/18 08:46 atorvastatin calcium AdvReac Unknown Muscle Verified 08/19/18 08:46 [From Lipitor] Aches crab AdvReac Diarrhea Verified 08/19/18 08:46 rosuvastatin AdvReac Muscle Verified 08/19/18 08:46 Aches Home Meds: Home Meds Calcium Carbonate/Vitamin D3 [Calcium 600 + Vit D Tablet] 1,200 mg PO DAILY 10/18 [History] Levothyroxine [Synthroid] 88 mcg PO DAILY 11/12/13 [History] Multivitamin [Multi Vitamin Daily] 1 tab PO DAILY 11/12/13 [History] Nitroglycerin [Nitrostat] 0.4 mg SL ASDIRECTED PRN 11/12/13 [History] Fludrocortisone [Florinef] 0.05 mg PO DAILY 11/13/13 [History] Hydrocortisone [Cortef] 20 mg PO BID 11/13/13 [History] Potassium Chloride 20 meq PO DAILY 02/22/15 [History] Acetaminophen 2 tab PO Q6H PRN 12/24/15 [History] Aspirin [Halfprin] 81 mg PO BEDTIME 03/26/16 [History] Turmeric/Turmeric Root Extract [Turmeric 500 mg Capsule] 2 cap PO BID 12/06/16 [ History] L.acidoph,Paracasei, B.lactis [Probiotic] 1 tab PO DAILY 06/21/18 [History] Lutein 10 mg PO DAILY 06/21/18 [History] Carvedilol 6.25 mg PO BID 10/19/18 [History] Clopidogrel Bisulfate [Clopidogrel] 75 mg PO DAILY 10/19/18 [History] Famotidine 20 mg PO DAILY 10/19/18 [History] Furosemide 20 mg PO DAILY 10/19/18 [History] Lisinopril 5 mg PO DAILY 10/19/18 [History] Spironolactone [Aldactone] 25 mg PO DAILY 10/19/18 [History] Cephalexin [Keflex] 500 mg PO BID 01/03/19 [History] Past Medical History HEENT History: Reports: Cataract, Impaired Vision Other HEENT History: PATIENT WEARS CORRECTIVE LENSES Cardiovascular History: Reports: CAD, Cardiomyopathy, High Cholesterol, Hypertension, SOB on Exertion, Stents Other Cardiovascular History: S/P Stent, LAD 12/10. S/P Stent , mid LAD 2018 Respiratory History: Reports: Bronchitis, Recurrent, Pneumonia, Recurrent, Sleep Apnea Gastrointestinal History: Reports: Diverticulosis, Fecal Incontinence, GERD Genitourinary History: Reports: Chronic Renal Insuffiency, Renal Disease, UTI, Recurrent, Other (See Below) Other Genitourinary History: MICROSCOPIC HEMATURIA. 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 GEOLOGY ASSOCIATE History: Reports: , Spontaneous Musculoskeletal History: Reports: Arthritis, Osteoarthritis Neurological History: Reports: Headaches, Chronic Psychiatric History: Reports: None Endocrine/Metabolic History: Reports: [place]'s Disease, Diabetes, Type II, Hypothyroidism, Osteopenia Other Endocrine/Metabolic History: checks blood sugar, no medication Hematologic History: Reports: Anemia, Blood Transfusion(s) Other Hematologic History: chemo induced thrombocytopenia Immunologic History: Reports: Immunosuppression Oncologic (Cancer) History: Reports: Leukemia Other Oncologic History: Acute Myelo leukemia Dermatologic History: Reports: None - Infectious Disease History Infectious Disease History: Reports: Measles, Mumps - Past Surgical History HEENT Surgical History: Reports: None Cardiovascular Surgical History: Reports: Coronary Artery Stent Respiratory Surgical History: Reports: None GI Surgical History: Reports: Colonoscopy, Colostomy, EGD Other GI Surgeries/Procedures: Sigmoid resection with colostomy 08/21. Colostomy reversal 07/22 Female Surgical History: Reports: Breast Biopsy, Cystoscopy, Tubal Ligation, Other (See Below) Other Female Surgeries/Procedures: LEFT BENIGN BREAsT LUMPECTOMY Neurological Surgical History: Reports: None Musculoskeletal Surgical History: Reports: Knee Replacement Other Musculoskeletal Surgeries/Procedures:: bilateral knee replacement 2005 Oncologic Surgical History: Reports: Biopsy of Breast, Lumpectomy Dermatological Surgical History: Reports: None Social & Family History - Family History Family Medical History: Noncontributory HEENT: Reports: Cataract Cardiac: Reports: Aneurysm, CAD, Heart Failure, [place] Respiratory: Reports: Asthma GI: Reports: Celiac Disease, Other (See Below) Other GI Family History: Chrones disease Musculoskeletal: Reports: Arthritis Neurological: Reports: CVA Endocrine/Metabolic: Reports: Ran's Disease Oncologic: Reports: Colon, Lung - Caffeine Use Caffeine Use: Reports: Soda, Tea ED ROS GENERAL - Review of Systems Review Of Systems: ROS reveals no pertinent complaints other than HPI. ED EXAM, GENERAL - Physical Exam Exam: See Below Exam Limited By: No Limitations General Appearance: Alert, WD/WN, Moderate Distress, Obese Eye Exam: Bilateral Eye: EOMI, Normal Inspection, PERRL Ears: Normal External Exam, Normal Canal, Hearing Grossly Normal, Normal TMs Nose: Normal Inspection, Normal Mucosa, No Blood Throat/Mouth: Normal Inspection, Normal Lips, Normal Teeth, Normal Gums, Normal Oropharynx, Normal Voice, No Airway Compromise Head: Atraumatic, Normocephalic Neck: Normal Inspection, Supple, Non-Tender, Full Range of Motion Respiratory/Chest: No Respiratory Distress Cardiovascular: Normal Peripheral Pulses, Regular Rate, Rhythm, No Edema, No Gallop, No JVD, No Murmur, No Rub, Extra Beats GI/Abdominal: Normal Bowel Sounds, Soft, Non-Tender, No Organomegaly, No Distention, No Abnormal Bruit, No Mass, Other (obese) (Female) Exam: Deferred Rectal (Female) Exam: Deferred Back Exam: Normal Inspection, Full Range of Motion, NT Extremities: Normal Inspection, Non-Tender, No Pedal Edema, Normal Capillary Refill Neurological: Alert, Oriented, CN II-XII Intact, Normal Cognition, Normal Gait, Normal Reflexes, No Motor/Sensory Deficits Psychiatric: Normal Affect, Normal Mood Skin Exam: Warm, Dry, Intact, Normal Color, No Rash Lymphatic: No Adenopathy Course - Vital Signs Last Recorded V/S: Last Vital Signs Temp 36.8 C 01/03/19 15:18 Pulse 86 01/03/19 15:18 Resp 18 01/03/19 15:18 BP 80/42 L 01/03/19 15:18 Pulse Ox 92 L 01/03/19 15:18 - Orders/Labs/Meds Orders: Active Orders 24 hr Category Date Time Status EKG Documentation Completion [RC] URGENT Care 01/03/19 10:42 Active EKG Documentation Completion [RC] URGENT Care 01/03/19 15:00 Active CULTURE BLOOD [BC] Stat Lab 01/03/19 11:00 Received CULTURE URINE [RM] Urgent Lab 01/03/19 13:37 Received Heparin Sodium [Heparin Lock Flush 100 Units/ML] Med 01/03/19 16:09 Once 500 units FLUSH ONETIME ONE Sodium Chloride 0.9% [Normal Saline] 500 ml Med 01/03/19 12:15 Active IV .BOLUS Medication Orders Sodium Chloride (Normal Saline) 500 mls @ 125 mls/hr IV .BOLUS TESSA Last Admin: 01/03/19 12:18 Dose: 125 mls/hr Labs: Laboratory Tests 01/03/19 01/03/19 01/03/19 Range/Units 11:00 11:00 11:00 WBC (5.0-10.0) 10^3/uL RBC (4.2-5.4) 10^6/uL Hgb (12.0-16.0) g/dL Hct (37.0-47.0) % MCV (80-100) fL MCH (27.0-34.0) pg MCHC (33.0-35.0) g/dL Plt Count (150-450) 10^3/uL Neut % (Auto) (42.2-75.2) % Lymph % (Auto) (20.5-50.1) % [place] % (Auto) (2-8) % Eos % (Auto) (1.0-3.0) % Baso % (Auto) (0.0-1.0) % PT 9.5 (9.0-12.0) SEC INR 0.9 (0.9-1.2) Sodium (135-145) mmol/L Potassium (3.6-5.0) mmol/L Chloride (101-111) mmol/L Carbon Dioxide (21.0-31.0) mmol/L Anion Gap BUN (7-18) mg/dL Creatinine (0.6-1.3) mg/dL Est Cr Clr Drug Dosing mL/min Estimated GFR (MDRD) BUN/Creatinine Ratio Glucose (74-105) mg/dL Lactic Acid 1.1 (0.5-2.2) mmol/L Calcium (8.4-10.2) mg/dl Total Bilirubin (0.2-1.0) mg/dL AST (10-42) IU/L ALT (10-60) IU/L Alkaline Phosphatase (42-121) IU/L Troponin I (0.00-0.02) ng/ml B-Natriuretic Peptide 150 H (0-100) pg/ml Total Protein (6.7-8.2) g/dl Albumin (3.2-5.5) g/dl Globulin Albumin/Globulin Ratio Urine Color (YELLOW) Urine Appearance (CLEAR) Urine pH (5.0-9.0) Ur Specific [place] (1.005-1.030) Urine Protein (NEGATIVE) Urine Glucose (UA) (NEGATIVE) Urine Ketones (NEGATIVE) Urine Occult Blood (NEGATIVE) Urine Nitrite (NEGATIVE) Urine Bilirubin (NEGATIVE) Urine Urobilinogen (0.2-1.0) mg/dL Ur Leukocyte Esterase (NEGATIVE) Urine RBC /HPF Urine WBC (0-5/HPF) /HPF Ur Epithelial Cells (NOT SEEN) /HPF Amorphous Sediment (NOT SEEN) /HPF Urine Bacteria (0-FEW/HPF) /HPF Urine Mucus (NOT SEEN) /LPF 01/03/19 01/03/19 01/03/19 Range/Units 11:00 11:00 13:37 WBC 14.8 H (5.0-10.0) 10^3/uL RBC 3.81 L (4.2-5.4) 10^6/uL Hgb 12.1 (12.0-16.0) g/dL Hct 37.6 (37.0-47.0) % MCV 98.7 (80-100) fL MCH 31.8 (27.0-34.0) pg MCHC 32.2 L (33.0-35.0) g/dL Plt Count 151 (150-450) 10^3/uL Neut % (Auto) 77.1 H (42.2-75.2) % Lymph % (Auto) 10.3 L (20.5-50.1) % [place] % (Auto) 10.5 H (2-8) % Eos % (Auto) 1.9 (1.0-3.0) % Baso % (Auto) 0.2 (0.0-1.0) % PT (9.0-12.0) SEC INR (0.9-1.2) Sodium 139 (135-145) mmol/L Potassium 3.4 L (3.6-5.0) mmol/L Chloride 103 (101-111) mmol/L Carbon Dioxide 27.0 (21.0-31.0) mmol/L Anion Gap 12.4 BUN 24 H (7-18) mg/dL Creatinine 1.1 (0.6-1.3) mg/dL Est Cr Clr Drug Dosing 35.40 mL/min Estimated GFR (MDRD) 49 BUN/Creatinine Ratio 21.81 Glucose 92 (74-105) mg/dL Lactic Acid (0.5-2.2) mmol/L Calcium 8.5 (8.4-10.2) mg/dl Total Bilirubin 1.3 H (0.2-1.0) mg/dL AST 17 (10-42) IU/L ALT 7 L (10-60) IU/L Alkaline Phosphatase 30 L (42-121) IU/L Troponin I 0.05 H* (0.00-0.02) ng/ml B-Natriuretic Peptide (0-100) pg/ml Total Protein 6.0 L (6.7-8.2) g/dl Albumin 3.1 L (3.2-5.5) g/dl Globulin 2.9 Albumin/Globulin Ratio 1.07 Urine Color Dark yellow (YELLOW) Urine Appearance Slightly cloudy (CLEAR) Urine pH 6.0 (5.0-9.0) Ur Specific [place] 1.020 (1.005-1.030) Urine Protein Trace H (NEGATIVE) Urine Glucose (UA) Negative (NEGATIVE) Urine Ketones Trace H (NEGATIVE) Urine Occult Blood Trace-intact H (NEGATIVE) Urine Nitrite Negative (NEGATIVE) Urine Bilirubin Small H (NEGATIVE) Urine Urobilinogen 0.2 (0.2-1.0) mg/dL Ur Leukocyte Esterase Small H (NEGATIVE) Urine RBC 10-20 H /HPF Urine WBC 50-75 H (0-5/HPF) /HPF Ur Epithelial Cells Moderate H (NOT SEEN) /HPF Amorphous Sediment Many H (NOT SEEN) /HPF Urine Bacteria Many H (0-FEW/HPF) /HPF Urine Mucus Moderate H (NOT SEEN) /LPF 01/03/ Range/Units 15:05 WBC (5.0-10.0) 10^3/uL RBC (4.2-5.4) 10^6/uL Hgb (12.0-16.0) g/dL Hct (37.0-47.0) % MCV (80-100) fL MCH (27.0-34.0) pg MCHC (33.0-35.0) g/dL Plt Count (150-450) 10^3/uL Neut % (Auto) (42.2-75.2) % Lymph % (Auto) (20.5-50.1) % [place] % (Auto) (2-8) % Eos % (Auto) (1.0-3.0) % Baso % (Auto) (0.0-1.0) % PT (9.0-12.0) SEC INR (0.9-1.2) Sodium (135-145) mmol/L Potassium (3.6-5.0) mmol/L Chloride (101-111) mmol/L Carbon Dioxide (21.0-31.0) mmol/L Anion Gap BUN (7-18) mg/dL Creatinine (0.6-1.3) mg/dL Est Cr Clr Drug Dosing mL/min Estimated GFR (MDRD) BUN/Creatinine Ratio Glucose (74-105) mg/dL Lactic Acid (0.5-2.2) mmol/L Calcium (8.4-10.2) mg/dl Total Bilirubin (0.2-1.0) mg/dL AST (10-42) IU/L ALT (10-60) IU/L Alkaline Phosphatase (42-121) IU/L Troponin I 0.05 H* (0.00-0.02) ng/ml B-Natriuretic Peptide (0-100) pg/ml Total Protein (6.7-8.2) g/dl Albumin (3.2-5.5) g/dl Globulin Albumin/Globulin Ratio Urine Color (YELLOW) Urine Appearance (CLEAR) Urine pH (5.0-9.0) Ur Specific [place] (1.005-1.030) Urine Protein (NEGATIVE) Urine Glucose (UA) (NEGATIVE) Urine Ketones (NEGATIVE) Urine Occult Blood (NEGATIVE) Urine Nitrite (NEGATIVE) Urine Bilirubin (NEGATIVE) Urine Urobilinogen (0.2-1.0) mg/dL Ur Leukocyte Esterase (NEGATIVE) Urine RBC /HPF Urine WBC (0-5/HPF) /HPF Ur Epithelial Cells (NOT SEEN) /HPF Amorphous Sediment (NOT SEEN) /HPF Urine Bacteria (0-FEW/HPF) /HPF Urine Mucus (NOT SEEN) /LPF Meds: Medications Generic Name Dose Route Start Last Admin Trade Name Freq PRN Reason Stop Dose Admin Sodium Chloride 500 mls @ 125 mls/hr 01/03/19 12:15 01/03/19 12:18 Normal Saline IV 125 mls/hr .BOLUS TESSA Administration Discontinued Medications Generic Name Dose Route Start Last Admin Trade Name Freq PRN Reason Stop Dose Admin Morphine Sulfate 2 mg 01/03/19 12:14 01/03/19 12:23 Morphine IVPUSH 01/03/19 12:15 2 mg ONETIME ONE Administration Ondansetron HCl 4 mg 01/03/19 11:28 01/03/19 11:39 Zofran IV 01/03/19 11:29 4 mg ONETIME ONE Administration Departure - Departure Time of Disposition: 16:09 Disposition: Home, Self-Care 01 Condition: Fair Clinical Impression: Left-sided chest wall pain, Nonspecific chest pain Hypotension Qualifiers: Hypotension type: unspecified hypotension type Qualified Code(s): I95.9 - Hypotension, unspecified UTI (urinary tract infection) Qualifiers: Urinary tract infection type: site unspecified Hematuria presence: with hematuria Qualified Code(s): N39.0 - Urinary tract infection, site not specified ; R31.9 - Hematuria, unspecified Instructions: Hypotension, [id number], Nonspecific Chest Pain, [id number], Chest Wall Pain, [id number], Urinary Tract Infection, Adult, [id number] Forms: ED Department Discharge Care Plan Goals: The patient was advised of the examination, lab, x-ray, EKG, repeat lab and repeat EKG results during the visit. The patient was given a dose of IV Morphine (for pain) while in the ED. The patient was discharged with scripts for 1) Keflex (500 mg) #28 to take 1 by mouth 4 times per day for 7 days, 2) [place] (5/325) #16 to take 1 by mouth every 6 hours as needed for pain and 3) Lisinopril (5 mg) #30 to take 1 by mouth daily. The patient was encouraged to follow-up with Dr. Chavez for continued evaluation and further management. If the patient has any additional symptoms or concerns, the patient should either return to the emergency department or visit her primary care facility. - My Orders Last 24 Hours: My Active Orders 01/03/19 10:42 EKG Documentation Completion [RC] URGENT 01/03/19 11:00 CULTURE BLOOD [BC] Stat 01/03/19 12:15 Sodium Chloride 0.9% [Normal Saline] 500 ml IV .BOLUS 01/03/19 13:37 CULTURE URINE [RM] Urgent 01/03/19 15:00 EKG Documentation Completion [RC] URGENT 01/03/19 16:09 Heparin Sodium [Heparin Lock Flush 100 Units/ML] 500 units FLUSH ONETIME ONE - Assessment/Plan Last 24 Hours: My Active Orders 01/03/19 10:42 EKG Documentation Completion [RC] URGENT 01/03/19 11:00 CULTURE BLOOD [BC] Stat 01/03/19 12:15 Sodium Chloride 0.9% [Normal Saline] 500 ml IV .BOLUS 01/03/19 13:37 CULTURE URINE [RM] Urgent 01/03/19 15:00 EKG Documentation Completion [RC] URGENT 01/03/19 16:09 Heparin Sodium [Heparin Lock Flush 100 Units/ML] 500 units FLUSH ONETIME ONE
[2019-01-03] MEDS ORDERED: Ondansetron 4 MG/2 ML SDV IV ONE (11:28)
[2019-01-03 11:29] LABS: ANION GAP 12.4
--- NOTE | 2019-01-03 11:54 | CR ---
EXAMINATION: Chest 1V Frontal SEX: Female AGE: 73 years CLINICAL HISTORY: 73-year-old obese female complaining of chest pain (cardiac pacemaker placed 2 days ago). INTERPRETATION: (Upright AP portable chest) 1. Poor inspiratory effort obese female with patchy new left lower lobe atelectasis compared 19 August 2018). 2. New cardiac pacer and lead placement right atrium/ventricle. Right supra clavicular central venous line. External pvc monitor leads. 3. No pneumothorax, pneumomediastinum or free subdiaphragmatic air. 4. No new signs of heart failure, lung mass or other focal lobar consolidation. Conclusion: New cardiac pacemaker and lead placement since 19 August 2018 exam. Left lower lobe atelectasis (poor inspiration). No signs of heart failure, lung mass or other lobar consolidation.
[2019-01-03] MEDS ORDERED: Morphine 2 MG/ML Syringe IVPUSH ONE (12:14)
[2019-01-03] MEDS ORDERED: Sodium Chloride 0.9% 500 ML IV SCH (12:15)
[2019-01-03 15:19] VITALS: PULSE 86
[2019-01-03 16:17] VITALS: BP 83/45
== END 2019-01-03 16:35 | disposition home or self-care (01) ==
LOC: DL.ED 10:39
DX: R07.89 Other chest pain (principal); I95.9 Hypotension, unspecified; N39.0 Urinary tract infection, site not specified; R31.9 Hematuria, unspecified; E78.00 Pure hypercholesterolemia, unspecified; K21.9 Gastro-esophageal reflux disease without esophagitis; I12.9 Hypertensive chronic kidney disease with stage 1 through stage 4 chronic kidney disease, or unspecified chronic kidney disease; E11.22 Type 2 diabetes mellitus with diabetic chronic kidney disease; N18.9 Chronic kidney disease, unspecified; E03.9 Hypothyroidism, unspecified; M19.90 Unspecified osteoarthritis, unspecified site; Z95.0 Presence of cardiac pacemaker; Z88.8 Allergy status to other drugs, medicaments and biological substances; Z88.2 Allergy status to sulfonamides; Z88.1 Allergy status to other antibiotic agents; Z91.013 Allergy to seafood; Z79.899 Other long term (current) drug therapy; Z79.82 Long term (current) use of aspirin
CPT/HCPCS: 36415; 71045; 80053; 81001; 83605; 83880; 84484; 85025; 85610; 87040; 87086; 93005; 96361; 96374; 96375; 99285; J1642; J2270; J2405; J7040; 87186

== ENCOUNTER 2019-03-14 13:32 | Emergency (ER) | payer MEDICARE, OTHER ==
--- NOTE | 2019-03-14 13:16 | EDM.PDOC ---
ED HPI GENERAL MEDICAL PROBLEM - General Stated Complaint: CODE BLUE Time Seen by Provider: 03/14/19 13:13 Source of Information: Reports: EMS, Family History Limitations: Reports: Other (cpr) - History of Present Illness INITIAL COMMENTS - FREE TEXT/NARRATIVE: EMS told by spouse pt was going to bathroom then collapse in chair, unable to wake up. called EMS. EMS arrive with pt sitting on chair unresponsive with VT, shocked x1 to PEA respiration agonal. 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 spouse arrived states they were at on Tuesday and when got home pt felt like she caught cold and didn't feel well and some diarrhoea. this am woke up feeling better but he did go to-from work to check on her several times. then at lunch hour he came back she had some soup then wanted to go to bathroom and he helped her to sit down then noticed she wasn't talking and not moving. he shouted and nothing happened. he called EMS. states pt has long list of medical problems. CPR continued ~ 40 minutes and d/c on no resumption of spontaneous activity. - Related Data Allergies Allergy/AdvReac Type Severity Reaction Status Date / Time diclofenac sodium Allergy Unknown Cannot Verified 08/19/18 08:46 [From Arthrotec] Remember misoprostol [From Arthrotec] Allergy Unknown Cannot Verified 08/19/18 08:46 Remember sulfamethoxazole Allergy Unknown Rash Verified 08/19/18 08:46 [From Bactrim] trimethoprim [From Bactrim] Allergy Unknown Rash Verified 08/19/18 08:46 valdecoxib [From Bextra] Allergy Unknown Cannot Verified 08/19/18 08:46 Remember lansoprazole Allergy Nausea and Verified 08/19/18 08:46 Vomiting levofloxacin [From Levaquin] Allergy Facial Verified 08/19/18 08:46 Spasms midodrine Allergy Bradycardia Verified 08/19/18 08:46 pantoprazole Allergy Nausea and Verified 08/19/18 08:46 Vomiting pravastatin Allergy Weakness Verified 08/19/18 08:46 Sulfa (Sulfonamide Allergy Rash Verified 08/19/18 08:46 Antibiotics) sulfacetamide Allergy Rash Verified 08/19/18 08:46 atorvastatin calcium AdvReac Unknown Muscle Verified 08/19/18 08:46 [From Lipitor] Aches crab AdvReac Diarrhea Verified 08/19/18 08:46 rosuvastatin AdvReac Muscle Verified 08/19/18 08:46 Aches Home Meds: Home Meds Calcium Carbonate/Vitamin D3 [Calcium 600 + Vit D Tablet] 1,200 mg PO DAILY 10/18 [History] Levothyroxine [Synthroid] 88 mcg PO DAILY 11/12/13 [History] Multivitamin [Multi Vitamin Daily] 1 tab PO DAILY 11/12/13 [History] Nitroglycerin [Nitrostat] 0.4 mg SL ASDIRECTED PRN 11/12/13 [History] Fludrocortisone [Florinef] 0.05 mg PO DAILY 11/13/13 [History] Hydrocortisone [Cortef] 20 mg PO BID 11/13/13 [History] Potassium Chloride 20 meq PO DAILY 02/22/15 [History] Acetaminophen 2 tab PO Q6H PRN 12/24/15 [History] Aspirin [Halfprin] 81 mg PO BEDTIME 03/26/16 [History] Turmeric/Turmeric Root Extract [Turmeric 500 mg Capsule] 2 cap PO BID 12/06/16 [ History] L.acidoph,Paracasei, B.lactis [Probiotic] 1 tab PO DAILY 06/21/18 [History] Lutein 10 mg PO DAILY 06/21/18 [History] Clopidogrel Bisulfate [Clopidogrel] 75 mg PO DAILY 10/19/18 [History] Famotidine 20 mg PO DAILY 10/19/18 [History] Furosemide 20 mg PO DAILY 10/19/18 [History] Spironolactone [Aldactone] 25 mg PO DAILY 10/19/18 [History] carvediloL [Carvedilol] 6.25 mg PO BID 10/19/18 [History] lisinopriL [Lisinopril] 5 mg PO DAILY 10/19/18 [History] Cephalexin [Keflex] 500 mg PO BID 01/03/19 [History] Past Medical History HEENT History: Reports: Cataract, Impaired Vision Other HEENT History: PATIENT WEARS CORRECTIVE LENSES Cardiovascular History: Reports: CAD, Cardiomyopathy, High Cholesterol, Hypertension, SOB on Exertion, Stents Other Cardiovascular History: S/P Stent, LAD 12/10. S/P Stent , mid LAD 2018 Respiratory History: Reports: Bronchitis, Recurrent, Pneumonia, Recurrent, Sleep Apnea Gastrointestinal History: Reports: Diverticulosis, Fecal Incontinence, GERD Genitourinary History: Reports: Chronic Renal Insuffiency, Renal Disease, UTI, Recurrent, Other (See Below) Other Genitourinary History: MICROSCOPIC HEMATURIA. 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 DONOR RELATIONS COORDINATOR History: Reports: , Spontaneous Musculoskeletal History: Reports: Arthritis, Osteoarthritis Neurological History: Reports: Headaches, Chronic Psychiatric History: Reports: None Endocrine/Metabolic History: Reports: [place]'s Disease, Diabetes, Type II, Hypothyroidism, Osteopenia Other Endocrine/Metabolic History: checks blood sugar, no medication Hematologic History: Reports: Anemia, Blood Transfusion(s) Other Hematologic History: chemo induced thrombocytopenia Immunologic History: Reports: Immunosuppression Oncologic (Cancer) History: Reports: Leukemia Other Oncologic History: Acute Myelo leukemia Dermatologic History: Reports: None - Infectious Disease History Infectious Disease History: Reports: Measles, Mumps - Past Surgical History HEENT Surgical History: Reports: None Cardiovascular Surgical History: Reports: Coronary Artery Stent Respiratory Surgical History: Reports: None GI Surgical History: Reports: Colonoscopy, Colostomy, EGD Other GI Surgeries/Procedures: Sigmoid resection with colostomy 08/21. Colostomy reversal 07/22 Female Surgical History: Reports: Breast Biopsy, Cystoscopy, Tubal Ligation, Other (See Below) Other Female Surgeries/Procedures: LEFT BENIGN BREAsT LUMPECTOMY Neurological Surgical History: Reports: None Musculoskeletal Surgical History: Reports: Knee Replacement Other Musculoskeletal Surgeries/Procedures:: bilateral knee replacement 2005 Oncologic Surgical History: Reports: Biopsy of Breast, Lumpectomy Dermatological Surgical History: Reports: None Social & Family History - Family History Family Medical History: Noncontributory HEENT: Reports: Cataract Cardiac: Reports: Aneurysm, CAD, Heart Failure, [place] Respiratory: Reports: Asthma GI: Reports: Celiac Disease, Other (See Below) Other GI Family History: Chrones disease Musculoskeletal: Reports: Arthritis Neurological: Reports: CVA Endocrine/Metabolic: Reports: [place]'s Disease Oncologic: Reports: Colon, Lung - Caffeine Use Caffeine Use: Reports: Soda, Tea ED ROS GENERAL - Review of Systems Review Of Systems: Comprehensive ROS is negative, except as noted in HPI. ED EXAM, CPR - Physical Exam Exam: See Below Limited By: Other (cpr) General Appearance: Other (cpr) Eye Exam: Bilateral Eye: PERRL (pupils fixed dilated) Head: Atraumatic Respiratory Chest: Rales, Rhonchi, Other (ET in place) Cardiovascular: Other (cpr) GI/Abdominal Exam: Other (incontinent) Neurological: Other (cpr) Skin Exam: Cool Course - Orders/Labs/Meds Labs: Laboratory Tests 03/14/19 03/14/19 03/14/19 Range/Units 13:07 13:07 13:07 WBC 17.2 H (5.0-10.0) 10^3/uL RBC 4.92 (4.2-5.4) 10^6/uL Hgb 14.9 D (12.0-16.0) g/dL Hct 48.9 H (37.0-47.0) % MCV 99.4 (80-100) fL MCH 30.3 (27.0-34.0) pg MCHC 30.5 L (33.0-35.0) g/dL Plt Count 268 D (150-450) 10^3/uL Neut % (Auto) 43.3 (42.2-75.2) % Lymph % (Auto) 45.3 (20.5-50.1) % [place] % (Auto) 9.5 H (2-8) % Eos % (Auto) 1.8 (1.0-3.0) % Baso % (Auto) 0.1 (0.0-1.0) % PT 11.0 (9.0-12.0) SEC INR 1.1 (0.9-1.2) Sodium 144 (135-145) mmol/L Potassium 4.0 (3.6-5.0) mmol/L Chloride 99 L (101-111) mmol/L Carbon Dioxide 19.0 L (21.0-31.0) mmol/L Anion Gap 30.0 BUN 24 H (7-18) mg/dL Creatinine 2.2 H (0.6-1.3) mg/dL Est Cr Clr Drug Dosing TNP Estimated GFR (MDRD) 22 Glucose 152 H (74-105) mg/dL Calcium 9.4 (8.4-10.2) mg/dl Troponin I 0.12 H* (0.00-0.02) ng/ml Departure - Departure Time of Disposition: 13:32 Disposition: 20 Preliminary Cause of *Q: Cardiac Arrest Clinical Impression: Cardiopulmonary arrest, Elevated troponin I level - Discharge Information Sepsis Event Note - Focused Exam Date Exam was Performed: 03/14/19 Time Exam was Performed: 14:01
[~2019-03-14 13:32] MED LIST changes: -Dextrose 5%-0.45% NaCl 1,000 ML IV SCH; +EPINEPHrine 1:10,000 1 MG/10 ML Syringe IV ONE; -Midazolam 1 MG/ML 2 ML SDV ONE; -Sodium Chloride 0.9% 10 ML Syringe FLUSH PRN; -fentaNYL 100 MCG/2 ML SDV ONE
[2019-03-14 13:44] LABS: CHLORIDE,CL 99 mmol/L (101-111); SODIUM,NA 144 mmol/L (135-145)
== END 2019-03-14 14:55 | disposition expired ==
LOC: DL.ED 13:32
DX: I46.9 Cardiac arrest, cause unspecified (principal); R79.89 Other specified abnormal findings of blood chemistry; I25.10 Atherosclerotic heart disease of native coronary artery without angina pectoris; E11.22 Type 2 diabetes mellitus with diabetic chronic kidney disease; I12.9 Hypertensive chronic kidney disease with stage 1 through stage 4 chronic kidney disease, or unspecified chronic kidney disease; N18.9 Chronic kidney disease, unspecified; E03.9 Hypothyroidism, unspecified; Z88.6 Allergy status to analgesic agent; Z88.8 Allergy status to other drugs, medicaments and biological substances; Z88.1 Allergy status to other antibiotic agents; Z88.2 Allergy status to sulfonamides; Z79.82 Long term (current) use of aspirin; Z95.5 Presence of coronary angioplasty implant and graft; Z79.84 Long term (current) use of oral hypoglycemic drugs; Z79.899 Other long term (current) drug therapy
CPT/HCPCS: 36415; 80048; 84484; 85025; 85610; 92950; 99285; J0171; 99284